=== PATIENT | female | born 1995 | race Caucasian/White ===

== ENCOUNTER 2017-06-19 10:13 | Inpatient (IN) | payer OTHER ==
[2017-06-19 14:24] LABS: ADD MAN DIFF? NO
[2017-06-19 14:25] LABS: WHITE BLOOD COUNT 8.7 10^3/ul (4.8-10.8)
[2017-06-19 14:25] LABS: ABNORMAL IP MESSAGE 1; BASOPHILS % 0.5 % (0.0-2.0); EOSINOPHILS # 0.2 10^3/ul (0.0-0.5); EOSINOPHILS % 1.7 % (0.0-7.0); HEMATOCRIT 37.1 % (37.0-47.0); HEMOGLOBIN 12.4 g/dl (12.0-16.0); LYMPHOCYTES % 22.7 % (15.0-51.0); MEAN CORPUSCULAR HEMOGLOBIN 27.7 pg (29.0-33.0); MEAN CORPUSCULAR HGB CONC 33.4 g/dl (32.0-37.0); MEAN CORPUSCULAR VOLUME 82.8 fl (82.0-101.0); MEAN PLATELET VOLUME 12.8 fl (7.4-10.4); MONOCYTE # 0.5 10^3/ul (0.3-0.9); MONOCYTES % 5.6 % (0.0-11.0); NEUTROPHILS % 68.5 % (39.0-77.0); PLATELET COUNT 139 10^3/UL (140-415); RED BLOOD COUNT 4.48 10^6/ul (4.20-5.40); RED CELL DISTRIBUTION WIDTH 14.6 % (11.5-14.5)
[2017-06-19 14:29] LABS: INR 0.97; PARTIAL THROMBOPLASTIN TIME 33.3 Sec (25.0-35.0)
[2017-06-19] MEDS ORDERED: BUTORPHANOL 2 MG INJ IV (14:30)
[2017-06-19] MEDS ORDERED: MISOPROSTOL 200 MCG TAB PR (14:30)
[2017-06-19] MEDS ORDERED: CARBOPROST 250 MCG INJ IM (14:30)
[2017-06-19] MEDS ORDERED: OXYTOCIN 30 UNITS/LR 500 ML IV (14:30)
[2017-06-19 15:10] LABS: RAPID PLASMA REAGIN NONREACTIVE (NR)
[2017-06-19] MEDS: MISOPROSTOL 25 MCG CAPSULE PO (16:14)
[2017-06-19] MEDS: SOD CHLORIDE 0.9% 1,000 ML IV ×2 (17:11→17:20)
[2017-06-19 18:21] LABS: HEPATITIS B SURFACE ANTIGEN NEGATIVE (NEGATIVE)
[2017-06-19] MEDS: LACTATED RINGER'S 1,000 ML IV (22:19)
[2017-06-20] MEDS: SOD CHLORIDE 0.9% 1,000 ML IV ×3 (01:33→11:59)
[2017-06-20] MEDS: LACTATED RINGER'S 1,000 ML IV ×3 (06:19→16:58)
[2017-06-20] MEDS ORDERED: NALOXONE (0.4 MG/ML) INJ IV (10:30)
[2017-06-20] MEDS ORDERED: DIPHENHYDRAMINE 50 MG INJ IV (10:30)
[2017-06-20] MEDS ORDERED: EPHEDrine SULFATE 50 MG/5 ML SYG IV (10:30)
[2017-06-20] MEDS ORDERED: ONDANSETRON 4 MG INJ IV (10:30)
[2017-06-20] MEDS: OXYTOCIN 30 UNITS/LR 500 ML IV ×3 (11:50→21:21)
[2017-06-20] MEDS ORDERED: OXYCODONE/ACETAMINOPHEN (5/325) TAB PO (16:30)
[2017-06-20] MEDS: FENTAnyl 2MCG/ML-ROPIV 0.2% 100 ML BAG EPI (16:34)
[2017-06-20 18:05] LABS: AMPHETAMINE/METHAMPHETAMINE Negative (NEGATIVE); BARBITURATES Negative (NEGATIVE); BENZODIAZEPINES Negative (NEGATIVE); CANNABINOIDS Negative (NEGATIVE); COCAINE Negative (NEGATIVE); OPIATES Negative (NEGATIVE)
[2017-06-20] MEDS: LIDOCAINE 1% (MPF) 30 ML INJ INJ (20:52)
[2017-06-20] MEDS: METHYLERGONOVINE 0.2 MG INJ IM (20:59)
[2017-06-20] MEDS: IBUPROFEN 600 MG TAB PO (21:37)
[2017-06-20] MEDS: LACTATED RINGER'S 1,000 ML IV* (23:32)
[2017-06-21] MEDS ORDERED: CARBOPROST 250 MCG INJ IM
[2017-06-21] MEDS ORDERED: HYDROCODONE/APAP (5/325) TAB PO
[2017-06-21] MEDS ORDERED: METHYLERGONOVINE 0.2 MG INJ IM
[2017-06-21] MEDS ORDERED: MISOPROSTOL 200 MCG TAB PR
[2017-06-21] MEDS ORDERED: ACETAMINOPHEN 325 MG TAB PO
[2017-06-21] MEDS ORDERED: OXYTOCIN 30 UNITS/LR 500 ML IV
[2017-06-21] MEDS ORDERED: DIBUCAINE 1% 30 GM OINT PR
[2017-06-21] MEDS: LANOLIN 7 GM TUBE TOP (00:02)
[2017-06-21] MEDS: WITCH HAZEL/GLYCERIN PAD PR (00:02)
[2017-06-21] MEDS: BENZOCAINE 20% 56 ML SPRAY TOP (00:02)
[2017-06-21] MEDS: IBUPROFEN 600 MG TAB PO ×5 (05:29→23:46)
[2017-06-21] MEDS: LACTATED RINGER'S 1,000 ML IV* ×2 (07:32→15:32)
[2017-06-21] MEDS: SENNA/DOCUSATE NA (8.6MG/50MG) TAB PO ×2 (09:00→21:50)
[2017-06-21 11:19] LABS: ADD MAN DIFF? NO
[2017-06-21 11:24] LABS: WHITE BLOOD COUNT 11.2 10^3/ul (4.8-10.8)
[2017-06-21 11:24] LABS: ABNORMAL IP MESSAGE 1; BASOPHILS % 0.3 % (0.0-2.0); EOSINOPHILS # 0.1 10^3/ul (0.0-0.5); EOSINOPHILS % 1.2 % (0.0-7.0); HEMATOCRIT 35.6 % (37.0-47.0); HEMOGLOBIN 11.8 g/dl (12.0-16.0); LYMPHOCYTES # 1.9 10^3/ul (0.8-2.9); LYMPHOCYTES % 16.9 % (15.0-51.0); MEAN CORPUSCULAR HEMOGLOBIN 27.4 pg (29.0-33.0); MEAN CORPUSCULAR HGB CONC 33.1 g/dl (32.0-37.0); MEAN CORPUSCULAR VOLUME 82.6 fl (82.0-101.0); MEAN PLATELET VOLUME 12.9 fl (7.4-10.4); MONOCYTE # 0.7 10^3/ul (0.3-0.9); MONOCYTES % 6.4 % (0.0-11.0); NEUTROPHIL # 8.4 10^3/ul (1.6-7.5); NEUTROPHILS % 74.3 % (39.0-77.0); PLATELET COUNT 152 10^3/UL (140-415); RED BLOOD COUNT 4.31 10^6/ul (4.20-5.40); RED CELL DISTRIBUTION WIDTH 14.6 % (11.5-14.5)
[2017-06-21 11:29] LABS: POSITIVE DIFF @See below
[2017-06-22] MEDS: IBUPROFEN 600 MG TAB PO ×2 (05:49→12:28)
[2017-06-22] MEDS: SENNA/DOCUSATE NA (8.6MG/50MG) TAB PO (09:00)
[2017-06-22] MEDS: DIPHTH/TET/ACEL PERTUSS (ADULT) 0.5 ML VIAL IM* (09:46)
== END 2017-06-22 14:45 | disposition home or self-care (01) | DRG 775 ==
LOC: OBT 10:13 → L-D 10:13 → OBT 13:21 → PP1 06-20 23:12 → L-D 13:15
PROVIDERS: Obstetrics & Gynecology
PROC: 10E0XZZ Delivery of Products of Conception, External Approach (ICD-10-PCS; principal; 2017-06-20)
PROC: 0UQGXZZ Repair Vagina, External Approach (ICD-10-PCS; 2017-06-20)
DX: O48.0 Post-term pregnancy (principal); O71.4 Obstetric high vaginal laceration alone; Z3A.40 40 weeks gestation of pregnancy; Z37.0 Single live birth; O99.214 Obesity complicating childbirth; E66.9 Obesity, unspecified; Z68.37 Body mass index [BMI] 37.0-37.9, adult
CPT/HCPCS: 62319; 76815; 76818; 80307; 85025; 85610; 85730; 86592; 86885; 86900; 86901; 87340; 90715